=== PATIENT | female | born 1975 | race Caucasian/White ===

== ENCOUNTER 2020-09-28 14:23 | Outpatient (CLI) | payer MEDICARE, SELFPAY | END 2020-09-28 14:24 | disposition home or self-care (01) | LOC: ANHCOVIDVC 14:24 | DX: Z23 Encounter for immunization (principal) | CPT/HCPCS: 0001A; 91300 ==

== ENCOUNTER 2020-10-19 14:17 | Outpatient (CLI) | payer MEDICARE, SELFPAY | END 2020-10-19 14:18 | disposition home or self-care (01) | LOC: ANHCOVIDVC 14:17 | DX: Z23 Encounter for immunization (principal) | CPT/HCPCS: 0002A; 91300 ==

== ENCOUNTER 2022-04-09 09:43 | Emergency (ER) | payer MEDICARE, SELFPAY ==
--- NOTE | ~2022-04-09 | XR_ITS ---
EXAMINATION: [id number] INDICATION: Left-sided chest pain TECHNIQUE: A frontal view of the chest and four views of the left ribs were obtained. COMPARISON: 02/04/2019 FINDINGS: The lungs are free of acute opacities. No pleural effusion or pneumothorax. The cardiomedia stinal silhouette is normal. The visualized bones and soft tissues are unremarkable. No displaced ri b fracture is identified. IMPRESSION: 1. No acute cardiopulmonary abnormality or evidence of displaced rib fracture. Reviewed, dictated and finalized at location B. ERN HAND
[2022-04-09 09:56] VITALS: BP 145/92; PULSE 70; RESP 16; TEMP 36.3; O2SAT 100
--- NOTE | 2022-04-09 10:04 | ED.WOUNDLAC ---
HPI - Wound/Laceration General Chief Complaint: Wound/Laceration Stated Complaint: cut on lt leg and rib Time Seen by Provider: 04/09/22 10:00 Source: patient Mode of arrival: ambulatory Limitations: no limitations History of Present Illness HPI narrative: Ms. Ferro is a 46-year-old female patient presenting to clinic today with complaints of a laceration to her left lower leg as well as left-sided rib pain. She reports she fell in her attic on and hit her left ribs and cut her left lower leg. Tetanus is unknown. Does have some redness and swelling to the wound to the left lower leg as well as some pitting edema. The area is tender touch. Also has tenderness to palpation over the left lower lateral ribs. Is able to take full deep breaths but has discomfort with doing this Related Data Home Medications Medication Instructions Recorded Confirmed amlodipine 5 mg tablet mg 04/09/22 baclofen 10 mg tablet mg 04/09/22 clonazepam 1 mg tablet mg 04/09/22 duloxetine 60 mg capsule,delayed mg PO 04/09/22 release folic acid 1 mg tablet 04/09/22 hydrochlorothiazide 25 mg tablet mg 04/09/22 lisinopril 40 mg tablet mg 04/09/22 meclizine 25 mg tablet mg 04/09/22 metoprolol succinate 50 mg mg PO 04/09/22 tablet,extended release 24 hr nortriptyline 25 mg capsule mg 04/09/22 oxybutynin chloride 10 mg mg PO 04/09/22 tablet,extended release 24 hr pantoprazole 40 mg tablet,delayed mg PO 04/09/22 release sulfasalazine 500 mg PO 04/09/22 tablet,delayed release ubrogepant 50 mg tablet (Ubrelvy) mg 04/09/22 Allergies Allergy/AdvReac Type Severity Reaction Status Date / Time ibuprofen Allergy Verified 10/22/11 16:55 Review of Systems Review of Systems: Pertinent positives per HPI. Patient denies any fever, chills, rash, headache, visual changes, dizziness, cough, runny nose, sore throat, shortness of breath, chest pain, palpitations, nausea, vomiting, diarrhea, constipation, abdominal pain, or any urinary issues. [facility] Family History Family History Grandparent Family history of malignant neoplasm Diabetes mellitus Social History Social History Alcohol intake: never Comments At the time of my signature, I reviewed and agree with the nursing past medical, surgical, social, and family history. There is no relevant family history pertinent to the patient complaint. Exam Narrative: General: Well-developed, well nourished, in no apparent distress Head: Normocephalic, atraumatic. Cardio: Regular rate and rhythm, s1 and s2 normal, no murmur appreciated. Resp: Clear to auscultation bilaterally, no rhonchi, rales, wheezing or rubs. Musculoskeletal: No deformity, tender to palpation over the lower left lateral ribs, pain with deep breathing and coughing, grossly normal range of motion, muscle strength strong and equal, peripheral pulse strong, no edema, no cyanosis, normal gait and station Integumentary: [place], warm, and dry, 2 cm old laceration to the left lower leg with redness and swelling, no discharge, no rashes. Course Course Emergency Course: Portions of this record may have been created with voice recognition software. Level of Care: Express Care Visit Vital Signs Vital signs: Vital Signs Temperature 36.3 C L 04/09/22 09:56 Pulse Rate 70 04/09/22 09:56 Respiratory Rate 16 04/09/22 09:56 Blood Pressure 145/92 H 04/09/22 09:56 Pulse Oximetry 100 04/09/22 09:56 Temperature 36.3 C L 04/09/22 09:56 Pulse Rate 70 04/09/22 09:56 Respiratory Rate 16 04/09/22 09:56 Blood Pressure 145/92 H 04/09/22 09:56 Pulse Oximetry 100 04/09/22 09:56 Vital signs reviewed MDM - Wound/Laceration MDM Narrative Medical decision making narrative: At the time of visit patient is resting comfortably on the exam table. Explained to the patient
[2022-04-09] MEDS: TETANUS,DIPHTHERIA,AC PERTUSSIS ADULT (0.5 ML) BOOSTRIX IM (10:30)
== END 2022-04-09 10:44 | disposition home or self-care (01) ==
PROVIDERS: Emergency Provider Nurse Practitioner Family
DX: S81.812A Laceration without foreign body, left lower leg, initial encounter (principal); L08.9 Local infection of the skin and subcutaneous tissue, unspecified; W19.XXXA Unspecified fall, initial encounter; R07.81 Pleurodynia; Z23 Encounter for immunization; G35 Multiple sclerosis; I10 Essential (primary) hypertension
CPT/HCPCS: 71101; 90471; 90715; 99213; G0463

== ENCOUNTER → 2022-05-07 10:39 | Outpatient (CLI) | payer MEDICARE, SELFPAY ==
--- NOTE | ~2022-05-07 | US_ITS ---
EXAMINATION: US pelvic complete w TV DATE: 05/07/2022 11:22 INDICATION: Pelvic pain Comparison:No prior studies for comparison. TECHNIQUE: Multiple transabdominal and endovaginal sonographic images of the pelvis performed. FINDINGS: The uterus measures 7.3 x 3.4 x 4.5 cm. The endometrial complex measures 5 mm there is a sl ightly hypoechoic mass of the uterus measuring 1.7 x 1.6 x 1.2 cm, compatible with a fibroid. There i s a hemorrhagic/proteinaceous cyst of the right ovary measuring 3.8 x 2.8 x 3.9 cm. Left ovary is unr emarkable.. The right ovary measures 4.9 x 3.4 x 4.3 cm and the left ovary measures 1.9 x 1.1 x 2.1 cm. There ar e small follicles in each ovary. Normal doppler signal in both ovaries. There is no free fluid in the pelvis. There are no abnormal masses seen on either side. IMPRESSION: 1. Intramural uterine fibroid measuring 1.7 cm. 2: Hemorrhagic/proteinaceous cyst of the right ovary measuring 3.9 cm containing low level internal e choes. Reviewed, dictated and finalized at location A. TECHNOLOGY ENGINEERING TECHNICIAN IMPRESSION: 1. Intramural uterine fibroid measuring 1.7 cm. 2: Hemorrhagic/proteinaceous cyst of the right ovary measuring 3.9 cm containin g low level internal echoes.
== END ==
PROVIDERS: Visit Provider Nurse Practitioner
DX: R10.2 Pelvic and perineal pain (principal); D25.1 Intramural leiomyoma of uterus; N83.201 Unspecified ovarian cyst, right side
CPT/HCPCS: 76830; 76856

== ENCOUNTER → 2022-05-14 09:49 | Outpatient (CLI) | payer MEDICARE, SELFPAY ==
--- NOTE | ~2022-05-14 | DEXA_ITS ---
Bone Density Report Name: ODILON TORRES Age: 47 Sex: Female Ethnicity: White Date of : 1975 Indication: postmenopausal; rheumatoid arthritis; Referring Provider: Silverio, [place] Study: Bone densitometry was performed. Exam Date: May 14, 2022 Accession number: [id number] Bone Density: Region BMD T-score Z-score Classification AP Spine (L1-L4) 0.985 -0.6 0.1 Normal Femoral Neck (Left) 0.645 -1.8 -1.2 Osteopenia Total Hip (Left) 0.765 -1.4 -1.0 Osteopenia Femoral Neck (Right) 0.658 -1.7 -1.1 Osteopenia Total Hip (Right) 0.787 -1.3 -0.8 Osteopenia Total Hip Mean 0.776 -1.4 -0.9 Osteopenia World Health Organization criteria for BMD impression classify patients as: Normal (T-score at or above -1.0), Osteopenia (T-score between -1.0 and -2.5), or Osteoporosis (T-score at or below -2.5). 10-year Fracture Risk(1): Major Osteoporotic Fracture 5.9% Hip Fracture 1.3% Reported Risk Factors: [place] (), Neck BMD=0.645, BMI=21.3, smoking, rheumatoid arthritis (1) FRAX(R) Version 3.08. Fracture probability calculated for an untreated patient. Fracture probability may be lower if the patient has received treatment. Clinical Information Provided by Patient: Smokes Has rheumatoid arthritis Has used the following medications: Vitamin D Patient maximum height was 65 Menopause Age: 43 No regular weight bearing exercise Does not regularly consume dairy products Drinks caffeinated beverages Onset of menses at age 10 Number of children 1 Impression: The patient has low bone mass, based on the Left Femoral Neck T-score. The patient has an estimated ten-year risk of hip fracture of 1.3% and an estimated ten-year risk of major fracture of 5.9%, based on the WHO FRAX algorithm. The patient has risk factors, including: smoking. Discussion: BONE DENSITY IS LOW AT ONE OR MORE SKELETAL SITES. This patient's lowest T-score is low at one or more skeletal sites. It meets the World Health Organization's (WHO) criteria for ?low bone mass? (T-score between -1.0 and -2.5). The patient's 10-year risk of fracture as calculated by FRAX is less than the threshold where pharmacological therapy is recommended by the National Osteoporosis Foundation (NOF). However, all treatment decisions require clinical judgment and consideration of individual patient factors, including patient preferences, comorbidities, previous drug use, risk factors not captured in the FRAX model (e.g., frailty, falls, vitamin D deficiency, increased bone turnover, interval significant decline in bone density) and possible under or overestimation of fracture risk by FRAX. The patient should follow a healthful lifestyle (good nutrition with adequate calcium and vitamin D, and appropriate weight-bearing exercise). Follow-Up: Consid
== END ==
PROVIDERS: Visit Provider Nurse Practitioner
DX: Z78.0 Asymptomatic menopausal state (principal); Z13.820 Encounter for screening for osteoporosis; M85.852 Other specified disorders of bone density and structure, left thigh; M85.851 Other specified disorders of bone density and structure, right thigh
CPT/HCPCS: 77080

== ENCOUNTER → 2022-06-25 10:43 | Outpatient (CLI) | payer MEDICARE, MEDICAID, SELFPAY ==
--- NOTE | ~2022-06-25 | US_ITS ---
Pelvic ultrasound. Clinical History: Ovarian cyst COMPARISON: 05/07/2022 Technique: Realtime transabdominal and transvaginal scanning of the pelvis was performed. Color flow Doppler and Doppler spectral analysis were performed. Findings: The uterus is anteverted. The endometrial stripe has a thickness of 3 mm. Possible ill-def ined anterior intramural fibroid measuring 2.3 cm in diameter. The right ovary measures 4.9 x 3.4 x 4.3 cm. Right ovarian cyst measures 4.4 x 3.0 x 3.8 cm, with cecilia ogeneous low-level internal echoes.. The left ovary measures 1.2 x 2.1 x 1.4 cm. No significant left ovarian or adnexal mass is seen. Vascular flow present in both ovaries on Doppler spectral analysis. There is no evidence of free fluid in the cul de sac. Impression: 4.4 3.0 x 3.8 cm mildly complex right ovarian cystic lesion. Appearance and stability since prior exa m suggests endometrioma. Possible ill-defined fibroid, as detailed above. Reviewed, dictated and finalized at location M. SHER HAND Impression: 4.4 3.0 x 3.8 cm mildly complex right ovarian cystic lesion. Appearance and sta bility since prior exam suggests endometrioma. Possible ill-defined fibroid, as detailed above.
== END ==
PROVIDERS: PCP Obstetrics & Gynecology Gynecology; Visit Provider Obstetrics & Gynecology Gynecology
DX: N83.201 Unspecified ovarian cyst, right side (principal)
CPT/HCPCS: 76830